=== PATIENT | female | born 1985 | race African-American/Black ===

== ENCOUNTER 2016-12-31 07:41 | Emergency (ER) | payer OTHER | END 2016-12-31 08:28 | disposition left against medical advice (07) | LOC: ERS 07:41 | DX: Z53.21 Procedure and treatment not carried out due to patient leaving prior to being seen by health care provider (principal) ==

== ENCOUNTER 2016-12-31 09:00 | Emergency (ER) | payer OTHER, SELFPAY ==
[2016-12-31] MEDS ORDERED: Fluconazole 100 MG TAB ONE (09:35)
== END 2016-12-31 09:43 | disposition home or self-care (01) ==
LOC: SCSER 09:00
DX: B37.3 Candidiasis of vulva and vagina (principal); F41.9 Anxiety disorder, unspecified; Z79.899 Other long term (current) drug therapy
CPT/HCPCS: 87491; 87591; 99283

== ENCOUNTER 2017-02-04 16:13 | Emergency (ER) | payer OTHER | END 2017-02-04 16:51 | disposition home or self-care (01) | LOC: SCSER 16:13 | DX: B37.3 Candidiasis of vulva and vagina (principal); F41.9 Anxiety disorder, unspecified; Z79.899 Other long term (current) drug therapy | CPT/HCPCS: 99283 ==

== ENCOUNTER 2023-01-17 15:12 | Emergency (ER) | payer OTHER ==
[2023-01-17 16:30] LABS: #Eosinphils 0.1 thou/uL (0.0-0.7); #Monocytes 0.7 thou/uL (0.11-0.59); #Neutrophils 4.7 thou/uL (1.40-6.50); %Basophils 0.5 % (0.0-1.0); %Eosinophils 1.2 % (0.0-10.0); %Lymphocytes 24.4 % (21.0-51.0); %Monocytes 9.3 % (0.0-10.0); %Neutrophils 64.2 % (42.0-75.0); Hematocrit 39.6 % (36.0-47.0); Hemoglobin 12.4 g/dL (12.0-16.0); Mean Corpuscular HGB CONC 31.3 g/dL (32.0-36.0); Mean Corpuscular Volume 79.8 fl (78.0-98.0); Mean Platelet Volume 12.1 fL (7.4-10.4); Platelet Count 315 10x3/uL (130-400); RBC Distribution Width 14.4 % (11.5-14.5); Red Blood Cell (RBC) Count 4.96 mill/uL (4.20-5.40); White Blood Cell (WBC) Count 7.4 10x3/uL (4.8-10.8)
[2023-01-17 16:56] LABS: Troponin I Less than 0.010 ng/mL (< 0.028)
[2023-01-17 17:00] LABS: ALT (SGPT) 12 U/L (8-55); AST (SGOT) 14 U/L (5-34); Albumin 4.5 g/dL (3.5-5.0); Alkaline Phosphatase 83 U/L (40-110); Anion Gap 12 mmol/L (10-20); BUN (Urea Nitrogen) 18 mg/dL (7.0-18.7); Calc. Creatinine Clearance 0 mL/min (70-130); Carbon Dioxide 23 mmol/L (22-29); Chloride 110 mmol/L (98-107); Estimated GFR 78; Globulin 2.6 g/dL (2.4-3.5); Glucose 117 mg/dL (70-105); Lipase 26 U/L (8-78); Potassium 4.6 mmol/L (3.5-5.1); Protein, Total 7.1 g/dL (6.0-8.3); Sodium 140 mmol/L (136-145)
[2023-01-17 17:07] LABS: Bilirubin, Total 0.2 mg/dL (0.2-1.2)
[2023-01-17] MEDS ORDERED: Aspirin Chewable 81 MG TAB ONE (19:37)
[2023-01-17] MEDS ORDERED: Nitroglycerin 0.4 MG TAB 1 EACH ONE (19:39)
[2023-01-17] MEDS ORDERED: oxyCODONE/Acetaminophen 5 mg/325 mg Tablet PO SCH (22:45)
[2023-01-17 23:44] LABS: Magnesium 1.9 mg/dL (1.6-2.6)
[2023-01-17 23:54] LABS: Troponin I Less than 0.010 ng/mL (< 0.028)
== END 2023-01-18 00:26 | disposition home or self-care (01) ==
LOC: ERS 15:12
DX: R07.89 Other chest pain (principal)
CPT/HCPCS: 36415; 71045; 80053; 83690; 83735; 84484; 85025; 93005